=== PATIENT | female | born 1960 | race Two or more races ===

== ENCOUNTER → 2019-07-07 | Outpatient (CLI) | payer MEDICARE | LOC: FB.MH 08:00 | PROVIDERS: ATTEND Psychiatry & Neurology Psychiatry | DX: F90.0 Attention-deficit hyperactivity disorder, predominantly inattentive type (principal); F31.9 Bipolar disorder, unspecified; F41.1 Generalized anxiety disorder | CPT/HCPCS: 99213 ==